=== PATIENT | female | born 1985 | race Caucasian/White ===

== ENCOUNTER 2024-05-06 22:11 | Observation (INO) | payer MEDICARE, MEDICAID ==
[~2024-05-06] VITALS: Ht 175.3 cm; Wt 118.3 kg
[~2024-05-06 22:11] MED LIST: CIPRO 500MG TA500 MG PO; DEPO-PROVER150 MG/M1 IM; FLAGYL500 MG PO; FLEXERIL 1010 MG/TAB PO; GLUCOPHAGE500 MG/TAB PO; JOLESSA 30 MCG-1 TAB PO; NORCO 325 MG-51 TAB PO; NORCO 325 MG-7.1 TAB PO; ZOFRAN ODT4 MG PO
[2024-05-07 00:20] LABS: COLLECTION METHOD CATHETER
[2024-05-07 00:25] LABS: BASO # 0.2 K/mm3 (0.0-0.2); BASO % 1.1 % (0.0-2.0); EOS # 0.3 K/mm3 (0.0-0.7); EOS % 2.3 % (0.0-4.0); GRAN # 8.9 K/mm3 (1.4-6.5); GRAN % 61.4 % (42.2-75.2); HEMATOCRIT 42.6 % (37.0-47.0); HEMOGLOBIN 14.5 g/dl (12.5-16.0); LYMPH % 27.5 % (20.0-51.0); MEAN CELL VOLUME 88 fl (80.0-100.0); MEAN CORPUSCULAR HEMOGLOBIN 30 pg (27-31); MEAN CORPUSCULAR HGB CONC 34 g/dl (33.0-37.0); MEAN PLATELET VOLUME 9.6 fl (7.4-10.4); MONO # 1.1 K/mm3 (0.1-0.6); MONO % 7.4 % (1.7-9.3); PLATELET COUNT 281 K/mm3 (130-400); RED BLOOD COUNT 4.84 M/mm3 (4.10-5.30); REDCELL DISTRIBUTION WIDTH-CV 12.7 % (11.5-14.5)
[2024-05-07 00:28] LABS: PH 5.5 (5.0-8.5); URINE APPEARANCE CLEAR (CLEAR/HAZY); URINE BLOOD TRACE (NEGATIVE); URINE COLOR YELLOW (YELLOW); URINE GLUCOSE NEGATIVE (NEGATIVE); URINE KETONE NEGATIVE (NEGATIVE); URINE NITRATE NEGATIVE (NEGATIVE); URINE PROTEIN(semi-quant) NEGATIVE (NEGATIVE); URINE UROBILINOGEN 0.2 E.U/dL (0.2-1.0)
[2024-05-07] MEDS ORDERED: Morphine 4 MG/ML VIAL IV ONE (00:30)
[2024-05-07] MEDS ORDERED: NS 1,000 ML IV ONE (00:30)
[2024-05-07 00:53] LABS: BILIRUBIN,TOTAL 0.3 mg/dL (0.2-1.2); CALCIUM 9.2 mg/dL (8.4-10.2); CREATININE, serum 0.92 mg/dL (0.57-1.11); MAGNESIUM 2.1 mg/dL (1.6-2.6); TOTAL PROTEIN 7.5 g/dl (6.2-8.1)
[2024-05-07 00:58] LABS: TROPONIN-I 0.011 ng/mL (0.00-0.033)
[2024-05-07] MEDS ORDERED: NS 50 ML IV SCH (01:06)
[2024-05-07] MEDS ORDERED: Iohexol 300 - 100 ML VIAL IV ONE (01:06)
[2024-05-07] MEDS ORDERED: HYDROmorphone 0.5 MG/0.5 ML SYRINGE IV ONE (02:00)
[2024-05-07] MEDS ORDERED: Ondansetron 4 MG/2 ML VIAL IV PRN (02:00)
[2024-05-07] MEDS ORDERED: Morphine 4 MG/ML VIAL IV PRN (02:00)
[2024-05-07] MEDS ORDERED: LEXAPRO20 MG PO (02:14)
[2024-05-07] MEDS ORDERED: INDERAL 20MG20 MG PO (02:15)
--- NOTE | 2024-05-07 03:13 | NUR ---
Patient arrived to the floor at this time from the ED, admission assessment and intake done, medrec reviewed, reports that her pain is minimal, hospital policies orientated, denies further needs, call light and personal items within reach, will continue to monitor.
[2024-05-07 03:19] VITALS: BP 168/99; PULSE 75; TEMP 97.6
--- NOTE | 2024-05-07 06:40 | NUR ---
PT RESTING IN BED. PT IS ON RA. PT IS NOT ON TELE. PT IS AXOX4. PT HAS CALL LIGHT AND INSTRUCTED TO CALL WITH ALL NEEDS. PT IS NPO UNTIL SEEN BY SURGERY.
[2024-05-07 07:17] VITALS: BP 153/88; PULSE 85; TEMP 97.9
--- NOTE | 2024-05-07 11:04 | NUR ---
1010-PT CALLED COMPLAINING OF NAUSEA. PT STATED SHE TOLERATED LIQUIDS WITH NO ISSUES, BUT ONCE SHE STARTED EATING BREAKFAST SHE BECAME NAUSEATED AND HAVING CRAMPING TO RLQ. NO EMESIS. MEDS GIVEN. PT DECLINED SPRITE, CRACKERS, OR PAIN MEDS. INSTRUCTED TO CALL [facility] ALL NEEDS OR ANY CHANGES.
[2024-05-07 11:06] VITALS: BP 149/82; PULSE 77; TEMP 97.8
[2024-05-07 12:30] VITALS: BP_SYST 149
--- NOTE | 2024-05-07 14:23 | NUR ---
IV REMOVED. DISCHARGE INSTRUCTIONS DISCUSSED WITH PT. FOLLOW UP WITH NEEDED. ALL QUESTIONS ANSWERED. PT WAITING FOR RIDE. WILL CALL WHEN READY.
--- NOTE | 2024-05-07 14:42 | NUR ---
Social work met with patient at bedside to discuss discharge planning. Patient was alert and oriented during discussion. Patient reported that she lives in [place] with her children. Her current doctor is Dr. Ji in [place] but that she is looking for someone more local. outreach and education social worker provided patient with PCP and clinic resource list. Patient states that her pharmacy of choice is [facility], and denied using any DME or needing assistance with ADLs. Patient reported that she does not utilize any services at home and has no concerns regarding discharge. Plan: D/C to home.
--- NOTE | 2024-05-07 15:20 | NUR ---
1450-PT WHEELED OUT FOR DISCHARGE BY THE [facility].
[2024-05-08] MEDS ORDERED: Influenza Virus Vaccine, Trivalent '24-25 0.5 ML SYRINGE IM SCH (09:00)
== END 2024-05-07 14:50 | disposition home or self-care (01) ==
LOC: COL.ER 22:11 → SURG 05-07 02:24
PROVIDERS: Emergency Medicine; ADMIT Surgery
DX: R10.31 Right lower quadrant pain (principal); Z87.19 Personal history of other diseases of the digestive system; Z90.49 Acquired absence of other specified parts of digestive tract
CPT/HCPCS: G0378; J1171; J2270; J2405; J2543; J7030; Q9967